=== PATIENT | male | born 1950 | race Caucasian/White ===

== ENCOUNTER 2018-10-18 16:24 | Emergency (ER) | payer MEDICARE, OTHER ==
[~2018-10-18] VITALS: Ht 157.5 cm; Wt 85.3 kg
[~2018-10-18 16:24] MED LIST: CIPR500T4 PO; HYDR-4011 PO; METR500T PO; OMEP20CA16 PO; ONDA4TAB14 PO
[2018-10-18 16:35] VITALS: BP 121/65; PULSE 89; RESP 20; Ht 157.5 cm; Wt 85.3 kg
[2018-10-18] MEDS ORDERED: AZIT250T PO (17:09)
[2018-10-18] MEDS ORDERED: IBUP-1542 PO (17:09)
[2018-10-18] MEDS ORDERED: PRED20TA PO (17:09)
[2018-10-18] MEDS ORDERED: SULF15DR19 BOTH EYES (17:21)
--- NOTE | 2018-10-18 17:25 | ERD ---
ER Documentation Chief Complaint Chief Complaint Pt with cough X [address] x 2 days. HPI 67-year-old male presents with bilateral eye redness and sore throat over the last 1 to 2 weeks. There is no measured fevers. He has minimal cough no history of chest pain, vomiting, abdominal pain. He is otherwise healthy for hypertension. He is here with 3 other family members with URI symptoms. Family states that he is unable to swallow due to his sore throat over the last day. ROS All systems reviewed and are negative except as per history of present illness. Medications Home Meds Active Scripts Sulfacetamide Sodium* (Bleph-10*) 10%-15 Ml Opht Drops, 1 DROP BOTH EYES QID for 7 Days, #1 EA Prov:ZO ANNE MD 10/18/18 Prednisone* (Prednisone*) 20 Mg Tab, 40 MG PO DAILY for 4 Days, TAB Prov:ZO ANNE MD 10/18/18 Azithromycin* (Zithromax*) 250 Mg Tablet, 250 MG PO .ZPACK DIRECTED, #6 TAB TAKE 500 MG (2 TABS) THE FIRST DAY THEN 250 MG (1 TAB) DAYS 2-5 Prov:ZO ANNE MD 10/18/18 Ibuprofen* (Motrin*) 600 Mg Tab, 600 MG PO Q6, #15 TAB Prov:ZO ANNE MD 10/18/18 Metronidazole* (Flagyl*) 500 Mg Tablet, 500 MG PO Q8 for 7 Days, TAB Prov:MAXWELLBETTYA VRadha [employer] 03/01/16 Ciprofloxacin Hcl* (Ciprofloxacin Hcl*) 500 Mg Tablet, 500 MG PO BID, #14 TAB Prov:MAXWELLBETTYA Aspen [employer] 03/01/16 Hydrocodone/Acetaminophen ([place] 5-325 Tablet) 1 Each Tablet, 1 EACH PO Q6 for PAIN, #30 TAB Prov:MAXWELLGELA LAZO NP 03/01/16 Ondansetron (Ondansetron Odt) 4 Mg Tab.rapdis, 4 MG PO Q6H PRN for NAUSEA AND/OR VOMITING, #30 TAB Prov:JESICA BRONSON MD 02/24/16 Omeprazole* (Omeprazole*) 20 Mg Capsule.dr, 20 MG PO DAILY, #30 Prov:JESICA BRONSON MD 02/24/16 Allergies Allergies: Coded Allergies: piperacillin (Verified Allergy, Severe, RASHES, HIVES, 10/18/18) tazobactam (Verified Allergy, Severe, RASHES, HIVES, 10/18/18) PMhx/Soc Medical and Surgical Hx: pt denies Medical Hx, pt denies Surgical Hx History of Surgery: No Anesthesia Reaction: No Hx Neurological Disorder: No Hx Respiratory Disorders: No Hx Cardiac Disorders: No Hx Psychiatric Problems: No Hx Miscellaneous Medical Probl: Yes (GALLSTONES) Hx Alcohol Use: No Hx Substance Use: No Hx Tobacco Use: No Smoking Status: Never smoker FmHx Family History: No diabetes, No coronary disease, No other Physical Exam Vitals Vital Signs Date Temp Pulse Resp B/P (MAP) Pulse Ox O2 O2 Flow FiO2 Time Delivery Rate 10/18/18 99.2 89 20 121/65 96 16:35 (83) Physical Exam Const: No acute distress Head: Atraumatic Eyes: Normal Conjunctiva. Minimal scleral redness. Eyes: Intact. No periorbital swelling or proptosis. ENT: Normal External Ears, Nose and Mouth. Is normal. Erythema posterior oropharynx. Tender anterior cervical lymph nodes. Uvula midline. Airway patent. Neck: Full range of motion. No meningismus. Resp: Clear to auscultation bilaterally Cardio: Regular rate and rhythm, no murmurs Abd: Soft, non tender, non distended. Normal bowel sounds Skin: No petechiae or rashes Back: No midline or flank tenderness Ext: No cyanosis, or edema Neur: Awake and alert Psych: Normal Mood and Affect Procedures/MDM She presents with sore throat for last 2 weeks. He has signs of pharyngitis. He may have viral syndrome given the additional symptoms and family and patient were counseled on this, although will be given family request and duration of s ymptoms we will treat empirically with Zithromax, Bleph-10, ibuprofen, short course of prednisone for lymphadenitis, primary care follow-up and return precautions. The patient was stable with no new complaints during the ER course. Clinically, there is no current evidence to suggest meningitis, sepsis, acute abdomen, pneumonia, stroke, acute coronary syndrome, pulmonary embolism, aortic dissection or any other emergent condition appearing to require further evaluation or hospitalization. Patient counseled regarding my diagnostic impression and care plan. Prior to discharge all questions answered. Pt agrees with treatment plan and understands strict return precautions. Pt is instructed to follow up with primary care provider within 24-48 hours. Precautionary instructions provided including instructions to return to the ER if not improving or for any worsening or changing symptoms or concerns. Disclaimer: Inadvertent spelling and grammatical errors are likely due to EHR/dictation software use and do not reflect on the overall quality of patient care. Also, please note that the electronic time recorded on this note does not necessarily reflect the actual time of the patient encounter. Departure Diagnosis: Primary Impression: Sore throat Condition: Stable Patient Instructions: Fever Control (Adult), Pharyngitis, Strep (Presumed) Referrals: DOCTOR,NOT ON STAFF (PCP) Additional Instructions: Will treat given duration of symptoms. Recheck for new worsening symptoms with primary doctor. Drink plenty fluids at home. ZO ANNE MD Oct 18, 2018 17:25
== END 2018-10-18 17:40 | disposition home or self-care (01) ==
LOC: FTE 16:24
DX: J02.9 Acute pharyngitis, unspecified (principal)
CPT/HCPCS: 99283

== ENCOUNTER 2019-02-01 14:24 | Emergency (ER) | payer MEDICARE, OTHER ==
[~2019-02-01] VITALS: Ht 165.1 cm; Wt 84.8 kg
[~2019-02-01 14:24] MED LIST changes: +AZIT250T PO; +IBUP-1542 PO; +OFLO5DRO46 BOTH EYES; -OMEP20CA16 PO; +OMEP20CA17 PO; +PRED20TA PO; +SULF15DR19 BOTH EYES
[2019-02-01 14:25] VITALS: Ht 165.1 cm; Wt 84.8 kg
[2019-02-01] MEDS ORDERED: TETRACAINE 0.5% 4 ML OPH BOTH EYES ONE (15:00)
[2019-02-01] MEDS ORDERED: FLUORESCEIN STRIP BOTH EYES ONE (15:00)
== END 2019-02-01 15:30 | disposition home or self-care (01) ==
LOC: FTE 14:24
DX: T59.891A Toxic effect of other specified gases, fumes and vapors, accidental (unintentional), initial encounter (principal)
CPT/HCPCS: 99283